=== PATIENT | male | born 1950 | race Caucasian/White ===

== ENCOUNTER 2017-09-09 21:04 | Emergency (ER) | payer BC, MEDICARE ==
--- NOTE | 2017-09-09 21:25 | ED ---
HPI Chest Pain - HPI Summary HPI Summary: 67 y/o male presents to the ED c/o L arm pain starting at the shoulder radiating down the arm starting at 19:30. Pt also c/o "bolts of CP" starting on the way to the ED. Pain resolved currently. Denies N/V, dizziness. Associated sx : SOB. Pt fell off a truck 2 days ago. Denies PMHx HTN, DM. Every day smoker. Pt states "he is under a lot of stress". This is scribe Ed Yesenia documenting for attending Neftali Gallo MD. - History of Current Complaint Chief Complaint: EDChestPainROMI Hx Obtained From: Patient Onset/Duration: Started Hours Ago, Still Present Timing: Intermittent - "bolts of pain" Pain Intensity: 6 Pain Scale Used: 0-10 Numeric Chest Pain Location: Mid Sternal Chest Pain Radiates To:: Arm - L shoulder down L arm Character: Other: - "bolts of pain" Aggravating Factor(s): Nothing Alleviating Factor(s): Nothing Associated Signs and Symptoms: Positive: Chest Pain, Shortness of Breath. Negative: Dizziness, Nausea, Vomiting - Allergy/Home Medications Allergies/Adverse Reactions: Allergies Allergy/AdvReac Type Severity Reaction Status Date / Time No Known Allergies Allergy Verified 02/04/16 12:42 PMH/Surg Hx/FS Hx/Imm Hx Previously Healthy: No Endocrine/Hematology History: Denies: Hx Diabetes Cardiovascular History: Denies: Hx Hypertension Musculoskeletal History: Reports: Hx Arthritis - Cancer History Cancer Type, Location and Year: skin CA - Surgical History Surgery Procedure, Year, and Place: hernia repair. finger surgery. skin CA removed from upper lip Infectious Disease History: No Infectious Disease History: Denies: Traveled Outside the [place] in Last 30 Days - Family History Known Family History: Positive: Unknown - Social History Alcohol Use: None Substance Use Type: Reports: None Hx Tobacco Use: Yes Smoking Status (MU): Current Every Day Smoker Review of Systems Constitutional: Negative Eyes: Negative ENT: Negative Positive: Chest Pain Positive: Shortness Of Breath Gastrointestinal: Negative Genitourinary: Negative Musculoskeletal: Other - L shoulder pain down the L arm Skin: Negative Neurological: Negative Psychological: Normal All Other Systems Reviewed And Are Negative: Yes Physical Exam - Summary Physical Exam Summary: Appearance: Well appearing, no pain distress Skin: warm, dry, reflects adequate perfusion Head/face: normal Eyes: EOMI, ROLAND ENT: normal Neck: supple, non-tender Respiratory: CTA, breath sounds present Cardiovascular: RRR, pulses symmetrical Abdomen: non-tender, soft Bowel: present Musculoskeletal: normal, strength/ROM intact Neuro: normal, sensory motor intact, A&Ox3 Triage Information Reviewed: Yes Vital Signs On Initial Exam: Initial Vitals Temp Pulse Resp BP Pulse Ox 98.1 F 66 16 149/97 97 09/09/17 21:06 09/09/17 21:06 09/09/17 21:06 09/09/17 21:06 09/09/17 21:06 Vital Signs Reviewed: Yes Diagnostics - Vital Signs Vital Signs Temp Pulse Resp BP Pulse Ox 09/09/17 21:06 98.1 F 66 16 149/97 97 - Laboratory Result Diagrams: 09/09/17 21:48 09/09/17 21:48 Lab Statement: Any lab studies that have been ordered have been reviewed, and results considered in the medical decision making process. - Radiology CXR Xray Interpretation: No Acute Changes Radiology Interpretation Completed By: ED Physician - EKG 1 EKG Interpretation: 21:11 - SR @ 61 BPM. No acute changes. Chest Pain Course/Dx - Course Assessment/Plan: EKG normal. CXR normal. Doesnt want to stayfor second troponin. agrees to f/u with pcp and receive stress test as outpatient. unlikely acs at present. pt and agrees with the plan - Chest Pain Differential Diagnosis/HQI/PQRI: Acute GA, Angina, Chest Wall, Lower Respiratory Infection - Diagnoses Provider Diagnoses: Chest pain Discharge - Sign-Out/Discharge Documenting (check all that apply): Patient Departure - Discharge Plan Condition: Stable Disposition: HOME Patient Education Materials: Chest Pain (ED) Referrals: Kennedy Frey MD [Primary Care Provider] - 4 Days (PLEASE F/u IN 3-5 DAYS) Additional Instructions: RETURN TO ED FOR CHANGING/WORSENING SYMPTOMS - Billing Disposition and Condition Condition: STABLE Disposition: Home
[2017-09-09] MEDS ORDERED: Aspirin TAB* 325 MG PO ONE (21:33)
--- OUTSIDE RECORDS SUMMARY | 2017-09-09 21:50 | XMS REPORT ---
:1950 External Reference #:[id number] Author Organization [employer] Address [address] [place] [address] Phone [phone] Care Team Providers Name Role Phone Kennedy Frey MD Primary Care Physician Unavailable Payers Type Date Identification Numbers Payment Provider Subscriber Commercial Effective: Policy Number: BS Facets Crescencio Delaney 2015 [id number] PayID: [id number] [address] [address] [place] [address] Health Maintenance Policy Number: [facility] Medicare Carlos Mejias (HMO) [id number] Solutions Group Number: [id number] [address] [address] PayID: [id number] [place] [address] Medigap Part B Expires: 02/11/2015 Policy Number: [id number] Medicaid Carlos Cruz Group Name: 1 1 [address] PayID: [id number] [place] [address] Workers Compensation Effective: Policy Number: Javed Holly 02/03/2016 [id number] Nancy Onset: 02/03/2016 Group Name: [phone] PayID: [id number] [place] [address] Problems Date Description Provider Status Onset: 05/07/2014 Difficulty sleeping Kevin Richardson M.D. Active Onset: 05/07/2014 Backache Kevin Richardson M.D. Active Onset: 11/17/2015 Normocytic anemia Sylvia Vazquez M.D.,FACP Onset: 01/09/2016 Impaired fasting glycaemia Sylvia Vazquez M.D.,FACLaura Onset: 01/09/2016 Major depressive disorder Kennedy Frey, Active Kaila,FACP Onset: 06/01/2016 Light cigarette smoker (1-9 Kennedy Frey, Active cigs/day) Kaila,FACP Onset: 05/07/2014 Hip pain Kevin Richardson M.D. Inactive Inactive: 11/17/2015 Family History Date Family Member(s) Problem(s) Comments General No Current Problems : (age 90 Father due to Old age? Years) Father Coronary Artery Disease (CAD) : (age 90 Mother due to Old age? Years) Mother Hypertension Mother Congestive Heart Failure (CHF) Siblings 3 First Brother Brain Cancer Second Brother Unknown incommunicado First Sister Multiple Sclerosis (MS) Social History Type Date Description Comments Marital Status Significant Other Lives With Girlfriend Occupation Self-employment Cigarette Use 03/14/2016 current cigarette smoker Began smoking in high school, less than 1/2 ppd ETOH Use 03/14/2016 Consumes 2 glasses of wine per day Recreational Drug Use Denies Drug Use Smoking Light tobacco smoker (10 or fewer cigarettes/day) Daily Caffeine Consumes on average 1 cup of regular coffee per day Exercise Type/Frequency Walks daily General Hx Text Allergies, Adverse Reactions, Alerts Date Description Reaction Status Severity Comments 03/14/2016 Cortisone active 06/01/2016 Cymbalta nausea, low energy, active Moderate to Severe confusion 05/07/2014 NKDA inactive Medications Medication Date Status Form Strength Qnty SIG Indications Ordering Provider Rozerem 04/25/ Active Tablets 8mg 30tabs 1 by mouth Kennedy 2018 every night Erma Frey, at bedtime M.DJustice,FACP as needed for insomnia Alprazolam 00/ Active Tablets 0.5mg 45tabs /2-1 by Kennedy 0000 mouth twice Erma Frey, a day as M.D.,FACP needed Ibuprofen 00/00/ Active Tablets 200mg as needed 3 Unknown 0000 per day Acetaminophen- 00/ Active Tablets 300-30mg 100tab take one Merlene Molina Codeine #3 0000 s tablet by Erma Frey, mouth twice M.D.,FACP a day as needed maximum daily dose=4 (replace rx earlier today) Tamsulosin HCL 11/06/ Hx Capsules 0.4mg 30caps 1 by mouth Kennedy 2017 - every day Erma Frey, 04/25/ M.D.,FACP 2018 Azithromycin 05/28/ Hx Tablets 250mg 6tabs 2 tab today J20.Donis Dennis 2017 - and then Pachikara 06/01/ 1tab daily , M.D. 2017 Ventolin HFA 05/28/ Hx Aerosol 108(90Base 8gm 2 puffs by Joan Dennis 2016 - ) mcg/Act mouth 3 Pachikara 11/06/ times a day , M.D. 2016 with spacer Duloxetine HCL 03/26/ Hx Caps 30mg 14caps take 1 Kennedy 2016 - Part capsule Erma Frey, 06/01/ every M.D.,FACP 2017 morning Duloxetine HCL 03/14/ Hx Caps DR 60mg 30caps take 1 Kennedy 2016 - Part capsule by Erma Frey, 03/26/ mouth every M.D.,FACP 2017 morning Doxycycline 01/08/ Hx Capsules 100mg 42caps si bid A69.20 Kennedy Monohydrate 2016 - x 21 days Erma Frey, 01/29/ M.D.,FACP 2016 Vitamin B-12 01/08/ Hx Tablets ER 1000mcg 1 po qd Kennedy ER 2016 - Erma Frey, 11/06/ M.D.,FACP 2017 Cymbalta 01/08/ Hx Caps DR 30mg 60caps 1 by mouth Kennedy 2016 - Part every Erma Frey, 03/14/ morning for M.D.,FACP 2017 2 wks then 2 qd Zolpidem 10/19/ Hx Tablets 10mg 30tabs 1/2-1 tab Kennedy Tartrate 2016 - by mouth Erma Frey, 10/22/ every night M.D.,FACP 2016 at bedtime as needed Amoxicillin/Cl 06/05/ Hx Tablets 875-125mg 20tabs 1 by mouth Demian0.Donis Dennis avulanate 2016 - twice a day Pachikara Potassium 10/19/ , M.D. 2015 Zolpidem 11/23/ Hx Tablets ER 12.5mg 30tabs 1 by mouth Kennedy Tartrate ER 2015 - every night Erma Frey, 10/19/ at bedtime M.D.,FACP 2016 Cephalexin 09/13/ Hx Capsules 500mg 28caps 4 times a 681.00 Kennedy 2014 - day by Erma Frey, 04/12/ mouth Kaila,FACP 2016 Zolpidem / Hx Tablets 10mg 30tabs 1 tab by [place] Tartrate 0000 - mouth every Pachikara 11/23/ night at , Kaila 2015 bedtime as needed note medication is for 30 days Ambien / Hx Tablets 5mg 30tabs one by Kennedy 0000 - mouth at Erma Frey, 04/25/ bedtime as Kaila,FACP 2017 needed for sleep Immunizations CPT Code Status Date Vaccine Lot # [id number] Given 04/25/2017 Pneumonia Vaccine [id number] 88565 Given 01/28/2017 Influenza Virus Vaccine, Quadrivalent, Split, [id number] Preservative Free [id number] Given 03/14/2016 Zoster (Zostavax) [id number] 04898 Given 11/17/2015 Pneumococcal Conjugate Vaccine 13 Valent For [id number] Intramuscular Use Vital Signs Date Vital Result Comment 09/03/2017 Height 67 inches 5'7" Weight 137.00 lb Heart Rate 64 /min BP Systolic Sitting 120 mmHg BP Diastolic Sitting 82 mmHg Body Temperature 97.8 F O2 % BldC Oximetry 97 % BMI (Body Mass Index) 21.5 kg/m2 04/25/2017 Height 67 inches 5'7" Weight 142.00 lb Heart Rate 70 /min BP Systolic Sitting 130 mmHg BP Diastolic Sitting 64 mmHg Body Temperature 97.7 F O2 % BldC Oximetry 97 % BMI (Body Mass Index) 22.2 kg/m2 01/28/2017 Weight 142.00 lb Heart Rate 62 /min BP Systolic 138 mmHg BP Diastolic 80 mmHg Body Temperature 97.6 F O2 % BldC Oximetry 91 % 11/06/2016 Weight 141.75 lb Heart Rate 67 /min BP Systolic Sitting 130 mmHg BP Diastolic Sitting 80 mmHg Body Temperature 98.2 F O2 % BldC Oximetry 98 % 06/01/2016 Weight 140.50 lb Heart Rate 62 /min BP Systolic Sitting 120 mmHg BP Diastolic Sitting 84 mmHg Body Temperature 97.7 F O2 % BldC Oximetry 97 % 05/28/2016 Weight 145.12 lb Heart Rate 60 /min BP Systolic Sitting 126 mmHg BP Diastolic Sitting 78 mmHg Body Temperature 97.7 F O2 % BldC Oximetry 98 % 03/14/2016 Height 66.5 inches 5'6.50" Weight 143.38 lb Heart Rate 66 /min BP Systolic Sitting 128 mmHg BP Diastolic Sitting 74 mmHg Body Temperature 98.2 F O2 % BldC Oximetry 98 % BMI (Body Mass Index) 22.8 kg/m2 02/14/2016 Height 66.5 inches 5'6.50" Weight 153.00 lb Heart Rate 65 /min BP Systolic 134 mmHg BP Diastolic 80 mmHg Body Temperature 98.8 F O2 % BldC Oximetry 98 % BMI (Body Mass Index) 24.3 kg/m2 01/09/2016 Weight 150.12 lb Heart Rate 69 /min BP Systolic Sitting 130 mmHg BP Diastolic Sitting 80 mmHg Body Temperature 98.3 F O2 % BldC Oximetry 97 % 11/17/2015 Weight 150.00 lb Heart Rate 64 /min BP Systolic Sitting 128 mmHg BP Diastolic Sitting 64 mmHg O2 % BldC Oximetry 97 % 06/27/2015 Height 66.5 inches 5'6.50" Weight 150.00 lb Pain Level 1 to 10 BMI (Body Mass Index) 23.8 kg/m2 06/15/2015 Height 66.5 inches 5'6.50" Weight 150.00 lb Heart Rate 65 /min BP Systolic 142 mmHg BP Diastolic 94 mmHg BMI (Body Mass Index) 23.8 kg/m2 06/06/2015 Height 66.5 inches 5'6.50" Weight 152.00 lb Heart Rate 68 /min BP Systolic Sitting 116 mmHg BP Diastolic Sitting 78 mmHg Body Temperature 97.8 F O2 % BldC Oximetry 98 % BMI (Body Mass Index) 24.2 kg/m2 04/13/2015 Height 66.5 inches 5'6.50" Weight 150.38 lb Heart Rate 70 /min BP Systolic Sitting 118 mmHg BP Diastolic Sitting 76 mmHg Body Temperature 97.0 F O2 % BldC Oximetry 98 % BMI (Body Mass Index) 23.9 kg/m2 09/13/2014 Height 66.5 inches 5'6.50" Weight 146.38 lb Heart Rate 67 /min BP Systolic Sitting 116 mmHg BP Diastolic Sitting 70 mmHg Body Temperature 97.3 F O2 % BldC Oximetry 97 % BMI (Body Mass Index) 23.3 kg/m2 08/10/2014 Weight 149.50 lb Heart Rate 65 /min BP Systolic Sitting 138 mmHg BP Diastolic Sitting 88 mmHg Body Temperature 96.6 F O2 % BldC Oximetry 97 % 06/30/2014 Height 66.5 inches 5'6.50" Weight 149.12 lb Heart Rate 90 /min BP Systolic Sitting 136 mmHg BP Diastolic Sitting 88 mmHg Body Temperature 98.4 F O2 % BldC Oximetry 97 % BMI (Body Mass Index) 23.7 kg/m2 05/07/2014 Height 66.5 inches 5'6.50" Weight 151.12 lb Heart Rate 73 /min BP Systolic Sitting 124 mmHg BP Diastolic Sitting 82 mmHg Body Temperature 98.0 F O2 % BldC Oximetry 98 % BMI (Body Mass Index) 24.0 kg/m2 Results Test Date Test Result H/L Range Note CBC Auto Diff 05/03/2017 White Blood Count 5.3 10^3/uL 3.5-10.8 Red Blood Count 4.46 10^6/uL 4.0-5.4 Hemoglobin 13.8 g/dL Low 14.0-18.0 Hematocrit 41 % Low 42-52 Mean Corpuscular Volume 92 fL 80-94 Mean Corpuscular Hemoglobin 31 pg 27-31 Mean Corpuscular HGB Conc 34 g/dL 31-36 Red Cell Distribution Width 14 % 10.5-15 Platelet Count 252 10^3/uL 150-450 Mean Platelet Volume 7.0 um3 Low 7.4-10.4 Abs Neutrophils 2.7 10^3/uL 1.5-7.7 Abs Lymphocytes 1.9 10^3/uL 1.0-4.8 Abs Monocytes 0.5 10^3/uL 0-0.8 Abs Eosinophils 0.1 10^3/uL 0-0.6 Abs Basophils 0 10^3/uL 0-0.2 Abs Nucleated RBC 0 10^3/uL Granulocyte % 51.3 % 38-83 Lymphocyte % 36.6 % 25-47 Monocyte % 9.3 % High 0-7 Eosinophil % 2.2 % 0-6 Basophil % 0.6 % 0-2 Nucleated Red Blood Cells % 0.1 Basic Metabolic Panel 05/03/2017 Sodium 140 mmol/L 133-145 Potassium 4.1 mmol/L 3.5-5.0 Chloride 102 mmol/L 101-111 Co2 Carbon Dioxide 31 mmol/L 22-32 Anion Gap 7 mmol/L 2-11 Glucose 94 mg/dL 70-100 Blood Urea Nitrogen 19 mg/dL 6-24 Creatinine 0.93 mg/dL 0.67-1.17 BUN/Creatinine Ratio 20.4 High 8-20 Calcium 9.6 mg/dL 8.6-10.3 Egfr Non- 80.8 >60 Egfr 103.9 >60 1 Drug Abuse 20 Urine 11/06/2016 Urine Amphetamine Negative ng/mL 2, 3 Urine Barbiturates Negative ng/mL 2, 4 Urine Benzodiazepines Presumptive Posi <SEE NOTE> ng/mL 2, 5 Urine Cocaine Negative ng/mL 2, 6 Urine Phencyclidine Negative ng/mL Cutoff: 25 2 Urine Tetrahydrocannabinol Negative ng/mL Cutoff: 50 2, 7 Creatinine, Urine 126.8 mg/dL 2 Specific Ennis 1.020 2 pH 5.6 2 Oxidants Negative 2, 8 Adulterants Comment Normal 2 Codeine, Ur Present ng/mL Cutoff: 25 2, 9 Scwuxix-9-ephv-glucuronide, Ur Present ng/mL 2, 10 Morphine, Ur Not Detected ng/mL Cutoff: 25 2, 11 Mkqeyqve-9-awsf-glucuronide, U Present ng/mL 2, 12 6-monoacetylmorphine, Ur Not Detected ng/mL Cutoff: 25 2, 13 Hydrocodone, Ur Present ng/mL Cutoff: 25 2, 14 Norhydrocodone, Ur Present ng/mL Cutoff: 25 2, 15 Dihydrocodeine, Ur Not Detected ng/mL Cutoff: 25 2, 16 Hydromorphone, Ur Not Detected ng/mL Cutoff: 25 2, 17 Tyeigibzcjuvq9ymsriozxdaxzpoq Not Detected ng/mL 2, 18 Oxycodone, Ur Not Detected ng/mL Cutoff: 25 2, 19 Noroxycodone, Ur Not Detected ng/mL Cutoff: 25 2, 20 Oxymorphone, Ur Not Detected ng/mL Cutoff: 25 2, 21 Pjogrcdaeut-4-vmfi-glucuronide Not Detected ng/mL 2, 22 Noroxymorphone, Ur Not Detected ng/mL Cutoff: 25 2, 23 Fentanyl, Ur Not Detected ng/mL Cutoff: 2 2, 24 Norfentanyl, Ur Not Detected ng/mL Cutoff: 2 2, 25 Meperidine, Ur Not Detected ng/mL Cutoff: 25 2, 26 Normeperidine, Ur Not Detected ng/mL Cutoff: 25 2, 27 Naloxone, Ur Not Detected ng/mL Cutoff: 25 2, 28 Fztkkiyl-4-nnbd-glucuronide, U Not Detected ng/mL 2, 29 Methadone, Ur Not Detected ng/mL Cutoff: 25 2, 30 Eddp, Ur Not Detected ng/mL Cutoff: 25 2, 31 Propoxyphene, Ur Not Detected ng/mL Cutoff: 25 2, 32 Norpropoxyphene, Ur Not Detected ng/mL Cutoff: 25 2, 33 Tramadol, Ur Not Detected ng/mL Cutoff: 25 2, 34 O-desmethyltramadol, Ur Not Detected ng/mL Cutoff: 25 2, 35 Tapentadol, Ur Not Detected ng/mL Cutoff: 25 2, 36 N-desmethyltapentadol, Ur Not Detected ng/mL Cutoff: 50 2, 37 Mlawirldxn-fwiq-zywpaphjotf, U Not Detected ng/mL 2, 38 Buprenorphine, Ur Not Detected ng/mL Cutoff: 5 2, 39 Norbuprenorphine, Ur Not Detected ng/mL Cutoff: 5 2, 40 Norbuprenorphine glucuronide Not Detected ng/mL Cutoff: 20 2, 41 Opioid Interpretation See Comment 2, 42 Benzodiazepine Confirm 11/06/2016 Urine Lorazepam GC/MS Negative ng/mL 2, 43 Urine Urine Nordiazepam GC/MS Negative ng/mL 2, 44 Urine Oxazepam GC/MS Negative ng/mL 2, 45 Urine Temazepam GC/MS Negative ng/mL 2, 46 Ur Oh Ethyl Flurazepam GC/MS Negative ng/mL 2, 47 Ur 7 [place] Clonazepam GC/MS Negative ng/mL 2, 48 Ur 7 NH Flunitrazepam GC/MS Negative ng/mL Cutoff: 50 2 Ur Alpha Oh Alprazolam GC/MS 149 ng/mL 2, 49 Ur Alpha Oh Triazolam GC/MS Negative ng/mL 2, 50 Ur Benzodiazepine Interp Positive. 2, 51 Ua Routine 11/06/2016 Ua Specific Ennis 1.020 Ua PH 5 Ua Color dark yellow Ua Appera clear Ua WBC neg Ua Protein neg Ua Glucose normal Ua Ketones neg Ua Bilirubin neg Ua Urobilinogen normal Ua Nitrite neg Ua Occult Blood neg CBC Auto Diff 09/28/2016 White Blood Count 4.9 10^3/uL 3.5-10.8 Red Blood Count 4.35 10^6/uL 4.0-5.4 Hemoglobin 13.9 g/dL Low 14.0-18.0 Hematocrit 40 % Low 42-52 Mean Corpuscular Volume 93 fL 80-94 Mean Corpuscular Hemoglobin 32 pg High 27-31 Mean Corpuscular HGB Conc 35 g/dL 31-36 Red Cell Distribution Width 14 % 10.5-15 Platelet Count 248 10^3/uL 150-450 Mean Platelet Volume 7 um3 Low 7.4-10.4 Abs Neutrophils 2.4 10^3/uL 1.5-7.7 Abs Lymphocytes 1.9 10^3/uL 1.0-4.8 Abs Monocytes 0.4 10^3/uL 0-0.8 Abs Eosinophils 0.2 10^3/uL 0-0.6 Abs Basophils 0 10^3/uL 0-0.2 Abs Nucleated RBC 0 10^3/uL Granulocyte % 48.9 % 38-83 Lymphocyte % 39.3 % 25-47 Monocyte % 7.4 % 1-9 Eosinophil % 3.7 % 0-6 Basophil % 0.7 % 0-2 Nucleated Red Blood Cells % 0 Comp Metabolic Panel 09/28/2016 Sodium 136 mmol/L 133-145 Potassium 4.4 mmol/L 3.5-5.0 Chloride 103 mmol/L 101-111 Co2 Carbon Dioxide 27 mmol/L 22-32 Anion Gap 6 mmol/L 2-11 Glucose 102 mg/dL High 70-100 Blood Urea Nitrogen 18 mg/dL 6-24 Creatinine 0.78 mg/dL 0.67-1.17 BUN/Creatinine Ratio 23.1 High 8-20 Calcium 9.5 mg/dL 8.6-10.3 Total Protein 6.8 g/dL 6.4-8.9 Albumin 4.2 g/dL 3.2-5.2 Globulin 2.6 g/dL 2-4 Albumin/Globulin Ratio 1.6 1-3 Total Bilirubin 0.50 mg/dL 0.2-1.0 Alkaline Phosphatase 41 U/L 34-104 Alt 20 U/L 7-52 Ast 21 U/L 13-39 Egfr Non- 99.3 >60 Egfr 127.7 >60 52 Laboratory test finding 09/28/2016 Lipase 34 U/L 11.0-82.0 TSH (Thyroid Stim Horm) 1.78 mcIU/mL 0.34-5.60 Ashok Garcia Comprehensive 09/28/2016 Ebv Capsid Ag IgG Ab Positive Negative Ebv Capsid Ag IgM Ab Negative Negative Ashok-Garcia Nuclear Antigen Positive Negative Ashok-Garcia Virus Interp See Comment 53 Laboratory test finding 09/28/2016 Lyme Disease Serology Negative Negative 54 Lipid Profile 05/29/2016 Triglycerides 57 mg/dL 55 (Trig/Chol/HDL) Cholesterol 160 mg/dL 56 HDL Cholesterol 42.1 mg/dL 57 LDL Cholesterol 107 mg/dL 58 Laboratory test finding 05/29/2016 Glucose 95 mg/dL 70-100 Vitamin B12 1068 pg/mL High 180-914 59 Hepatitis C Antibody Nonreactive Nonreactive Laboratory Studies 02/04/2016 Urine Specific Ennis 1.033 High 1.010- 1.030 Urine pH 5.0 5-9 Laboratory Studies 02/04/2016 Absolute Basophils (auto) 0 10^3/ul 0-0.2 Absolute Eosinophils (auto) 0.1 10^3/ul 0-0.6 Absolute Lymphocytes (auto) 2.1 10^3/ul 1.0-4.8 Absolute Monocytes (auto) 0.4 10^3/ul 0-0.8 Absolute Neutrophils (auto) 3.1 10^3/ul 1.5-7.7 Alanine Aminotransferase (Alt/SGPT) 21 U/L 7-52 Albumin 4.0 g/dL 3.2-5.2 Albumin/Globulin Ratio 1.4 1-3 Alkaline Phosphatase 36 U/L 34-104 Anion Gap 4 mmol/L 2-11 Aspartate Amino Transf (Ast/Sgot) 20 U/L 13-39 BUN/Creatinine Ratio 21.3 High 8-20 Basophils (%) (Auto) 0.7 % 0-2 Blood Urea Nitrogen 16 mg/dL 6-24 Calcium Level 9.4 mg/dL 8.6-10.3 Carbon Dioxide Level 30 mmol/L 22-32 Chloride Level 102 mmol/L 101-111 Creatinine 0.75 mg/dL 0.67-1.17 Eosinophils (%) (Auto) 2.3 % 0-6 Estimated GFR () 134.0 Estimated GFR (Non- 104.2 Globulin 2.8 g/dL 2-4 Glucose Level 94 mg/dL 70-100 Hematocrit 40 % Low 42-52 Hemoglobin 13.3 g/dL Low 14.0-18.0 Lymphocytes (%) (Auto) 36.3 % 25-47 Mean Corpuscular Hemoglobin 31 pg 27-31 Mean Corpuscular Hemoglobin Concent 33 g/dL 31-36 Mean Corpuscular Volume 92 fL 80-94 Mean Platelet Volume 7 um3 Low 7.4-10.4 Monocytes (%) (Auto) 6.6 % 1-9 Neutrophils (%) (Auto) 54.1 % 38-83 Nucleated RBC Absolute Count (auto) 0 10^3/ul Nucleated Red Blood Cells % 0 Platelet Count 232 10^3/ul 150-450 Potassium Level 4.5 mmol/L 3.5-5.0 Red Blood Count 4.30 10^6/ul 4.0-5.4 Red Cell Distribution Width 14 % 10.5-15 Sodium Level 136 mmol/L 133-145 Total Bilirubin 0.70 mg/dL 0.2-1.0 Total Protein 6.8 g/dL 6.4-8.9 White Blood Count 5.7 10^3/ul 3.5-10.8 Protein Electrophoresis 11/21/2015 Total Protein(Pep) 7.5 g/dL 6.3 - 7.9 Albumin 3.7 g/dL 3.4-4.7 Alpha-1 Globulin 0.2 g/dL 0.1-0.3 Alpha-2 Globulin 1.1 g/dL 0.6-1.0 Beta Globulin 1.0 g/dL 0.7-1.2 Gamma Globulin 1.6 g/dL 0.6-1.6 Albumin/Globulin Ratio 0.98 Impression See Comment 60 Iron & Iron Binding Capacity 11/21/2015 Iron 81 g/dL 50-212 Unsaturated Iron Binding 261 g/dL Total Iron Binding Capacity 342 g/dL 250-450 % Iron Saturation 24 % 15-55 Laboratory test finding 11/21/2015 Vitamin B12 288 pg/mL 180-914 61 CBC Auto Diff 11/21/2015 White Blood Count 5.4 10^3/uL 3.5-10.8 Red Blood Count 4.46 10^6/uL 4.0-5.4 Hemoglobin 13.7 g/dL Low 14.0-18.0 Hematocrit 40 % Low 42-52 Mean Corpuscular Volume 91 fL 80-94 Mean Corpuscular Hemoglobin 31 pg 27-31 Mean Corpuscular HGB Conc 34 g/dL 31-36 Red Cell Distribution Width 13 % 10.5-15 Platelet Count 266 10^3/uL 150-450 Mean Platelet Volume 7 um3 Low 7.4-10.4 Abs Neutrophils 3.5 10^3/uL 1.5-7.7 Abs Lymphocytes 1.2 10^3/uL 1.0-4.8 Abs Monocytes 0.4 10^3/uL 0-0.8 Abs Eosinophils 0.2 10^3/uL 0-0.6 Abs Basophils 0 10^3/uL 0-0.2 Abs Nucleated RBC 0 10^3/uL Granulocyte % 65.6 % 38-83 Lymphocyte % 23.0 % Low 25-47 Monocyte % 7.2 % 1-9 Eosinophil % 3.7 % 0-6 Basophil % 0.5 % 0-2 Nucleated Red Blood Cells % 0 Comp Metabolic Panel 11/21/2015 Sodium 138 mmol/L 133-145 Potassium 4.4 mmol/L 3.5-5.0 Chloride 103 mmol/L 101-111 Co2 Carbon Dioxide 29 mmol/L 22-32 Anion Gap 6 mmol/L 2-11 Glucose 101 mg/dL High 70-100 Blood Urea Nitrogen 16 mg/dL 6-24 Creatinine 0.76 mg/dL 0.67-1.17 BUN/Creatinine Ratio 21.1 High 8-20 Calcium 9.7 mg/dL 8.6-10.3 Total Protein 7.0 g/dL 6.4-8.9 Albumin 4.3 g/dL 3.2-5.2 Globulin 2.7 g/dL 2-4 Albumin/Globulin Ratio 1.6 1-3 Total Bilirubin 0.40 mg/dL 0.2-1.0 Alkaline Phosphatase 52 U/L 34-104 Alt 16 U/L 7-52 Ast 20 U/L 13-39 Egfr Non- 102.6 >60 Egfr 132.0 >60 62 Laboratory test finding 11/21/2015 Lyme Disease Serology Negative Negative 63 CBC Auto Diff 06/06/2015 White Blood Count 5.3 10^3/uL 3.5-10.8 Red Blood Count 4.30 10^6/uL 4.0-5.4 Hemoglobin 13.3 g/dL Low 14.0-18.0 Hematocrit 39 % Low 42-52 Mean Corpuscular Volume 92 fL 80-94 Mean Corpuscular Hemoglobin 31 pg 27-31 Mean Corpuscular HGB Conc 34 g/dL 31-36 Red Cell Distribution Width 13 % 10.5-15 Platelet Count 260 10^3/uL 150-450 Mean Platelet Volume 7 um3 Low 7.4-10.4 Abs Neutrophils 2.5 10^3/uL 1.5-7.7 Abs Lymphocytes 1.9 10^3/uL 1.0-4.8 Abs Monocytes 0.5 10^3/uL 0-0.8 Abs Eosinophils 0.4 10^3/uL 0-0.6 Abs Basophils 0 10^3/uL 0-0.2 Abs Nucleated RBC 0 10^3/uL Granulocyte % 48.3 % 38-83 Lymphocyte % 35.1 % 25-47 Monocyte % 8.9 % 1-9 Eosinophil % 7.0 % High 0-6 Basophil % 0.7 % 0-2 Nucleated Red Blood Cells % 0 Comp Metabolic Panel 06/06/2015 Sodium 138 mmol/L 133-145 Potassium 4.1 mmol/L 3.5-5.0 Chloride 105 mmol/L 101-111 Co2 Carbon Dioxide 28 mmol/L 22-32 Anion Gap 5 mmol/L 2-11 Glucose 79 mg/dL 70-100 Blood Urea Nitrogen 15 mg/dL 6-24 Creatinine 0.73 mg/dL 0.67-1.17 BUN/Creatinine Ratio 20.5 High 8-20 Calcium 9.2 mg/dL 8.6-10.3 Total Protein 6.7 g/dL 6.4-8.9 Albumin 4.2 g/dL 3.2-5.2 Globulin 2.5 g/dL 2-4 Albumin/Globulin Ratio 1.7 1-3 Total Bilirubin 0.40 mg/dL 0.2-1.0 Alkaline Phosphatase 46 U/L 34-104 Alt 17 U/L 7-52 Ast 20 U/L 13-39 Egfr Non- 107.5 >60 Egfr 138.2 >60 64 Laboratory test finding 06/06/2015 TSH (Thyroid Stim Horm) 2.21 ?IU/mL 0.34-5.60 Laboratory test finding 09/28/2014 TSH (Thyroid Stim Horm) 1.77 ?IU/mL 0.34-5.60 CBC Auto Diff 09/28/2014 White Blood Count 5.0 10^3/uL 4.8-10.8 Red Blood Count 4.65 10^6/uL 4.0-5.4 Hemoglobin 13.9 g/dL Low 14.0-18.0 Hematocrit 43 % 42-52 Mean Corpuscular Volume 92 fL 80-94 Mean Corpuscular Hemoglobin 30 pg 27-31 Mean Corpuscular HGB Conc 32 g/dL 31-36 Red Cell Distribution Width 14 % 10.5-15 Platelet Count 284 10^3/uL 150-450 Mean Platelet Volume 7 um3 Low 7.4-10.4 Abs Neutrophils 2.6 10^3/uL 1.5-7.7 Abs Lymphocytes 1.8 10^3/uL 1.0-4.8 Abs Monocytes 0.4 10^3/uL 0-0.8 Abs Eosinophils 0.1 10^3/uL 0-0.6 Abs Basophils 0 10^3/uL 0-0.2 Abs Nucleated RBC 0 10^3/uL Granulocyte % 52.5 % 38-83 Lymphocyte % 35.8 % 25-47 Monocyte % 8.7 % 1-9 Eosinophil % 2.4 % 0-6 Basophil % 0.6 % 0-2 Nucleated Red Blood Cells % 0.1 Comp Metabolic Panel 09/28/2014 Sodium 138 mmol/L 133-145 Potassium 4.6 mmol/L 3.5-5.0 Chloride 103 mmol/L 101-111 Co2 Carbon Dioxide 29 mmol/L 22-32 Anion Gap 6 mmol/L 2-11 Glucose 86 mg/dL 70-100 Blood Urea Nitrogen 19 mg/dL 6-24 Creatinine 0.76 mg/dL 0.67-1.17 BUN/Creatinine Ratio 25.0 High 8-20 Calcium 9.5 mg/dL 8.6-10.3 Total Protein 6.9 g/dL 6.4-8.9 Albumin 4.2 g/dL 3.2-5.2 Globulin 2.7 g/dL 2-4 Albumin/Globulin Ratio 1.6 1-3 Total Bilirubin 0.50 mg/dL 0.2-1.0 Alkaline Phosphatase 47 U/L 34-104 Alt 14 U/L 7-52 Ast 17 U/L 13-39 Egfr Non- 102.9 >60 Egfr 132.4 >60 65 1 Because ethnic data is not always readily available, this report includes an eGFR for both -Americans and non- Americans. The National Kidney Disease Education Program (NKDEP) does not endorse the use of the MDRD equation for patients that are not between the ages of 18 and 70, are , have extremes of body size, muscle mass, or nutritional status, or are non- or non-. According to the National Kidney Foundation, irrespective of diagnosis, the stage of the disease is based on the level of kidney function: Stage Description GFR(mL/min/1.73 m(2)) 1 Kidney damage with normal or decreased GFR 90 2 Kidney damage with mild decrease in GFR 60-89 3 Moderate decrease in GFR 30-59 4 Severe decrease in GFR 15-29 5 Kidney failure <15 (or dialysis) 2 [id number] 3 REFERENCE VALUE Cutoff: 500 4 REFERENCE VALUE Cutoff: 200 5 Presumptive Positive Drug confirmation to follow. Presumptive Positive means that the screening method is positive, but the test needs to be run by a confirmatory method before being finalized. REFERENCE VALUE Cutoff: 100 6 REFERENCE VALUE Cutoff: 150 7 ADDITIONAL INFORMATION This report is intended for use in clinical monitoring or management of patients. It is not intended for use in employment-related testing. 8 REFERENCE VALUE Cutoff: 200 mg/L 9 Tylenol 3 10 Metabolite of codeine REFERENCE VALUE Cutoff: 100 11 Linette Gutiérrez, MS Contin; Also a minor metabolite (10%) of codeine and can be seen in low concentrations (<2,000 ng/mL) with poppy seed ingestion. 12 Metabolite of morphine REFERENCE VALUE Cutoff: 100 13 Metabolite of heroin 14 Lortab, [place], Vicodin; Also a very minor metabolite of codeine and impurity (<1%) of oxycodone. 15 Metabolite of hydrocodone 16 Metabolite of hydrocodone 17 Dilaudid, Exalgo; Also a metabolite of hydrocodone and a minor (<5%) metabolite of morphine. 18 Metabolite of hydromorphone REFERENCE VALUE Cutoff: 100 19 Endocet, Percocet, Oxycontin 20 Metabolite of oxycodone 21 Numorphan, Opana; Also a metabolite of oxycodone. 22 Metabolite of oxymorphone REFERENCE VALUE Cutoff: 100 23 Metabolite of oxymorphone 24 Actiq, Duragesic, [place] 25 Metabolite of fentanyl 26 Demerol 27 Metabolite of meperidine 28 Narcan 29 Metabolite of naloxone REFERENCE VALUE Cutoff: 100 30 Dolophine 31 Metabolite of methadone 32 Darvon, Darvocet 33 Metabolite of propoxyphene 34 Tradol, Ultram, Ultracet 35 Metabolite of tramadol 36 Nucynta 37 Metabolite of tapentadol 38 Metabolite of tapentadol REFERENCE VALUE Cutoff: 100 39 Buprenex, Suboxone 40 Metabolite of buprenorphine 41 Metabolite of buprenorphine 42 Test detected the presence of codeine, [id number] (metabolite of codeine) and [id number]-glucuronide (metabolite of morphine). Since codeine gets metabolized to morphine, suspect use of codeine within the past three days. Test detected the presence of hydrocodone and one of its metabolites (norhydrocodone). Suspect use of hydrocodone within the past three days. ADDITIONAL INFORMATION This test was developed and its performance characteristics determined by [facility] in a manner consistent with CLIA requirements. This test has not been cleared or approved by the U.S. Food and Drug Administration. Test Performed by: [facility] [address] [place] [address] 43 REFERENCE VALUE Cutoff: 100 44 REFERENCE VALUE Cutoff: 100 45 REFERENCE VALUE Cutoff: 100 46 REFERENCE VALUE Cutoff: 100 47 REFERENCE VALUE Cutoff: 100 48 REFERENCE VALUE Cutoff: 100 49 REFERENCE VALUE Cutoff: 100 50 REFERENCE VALUE Cutoff: 100 51 ADDITIONAL INFORMATION This report is intended for use in clinical monitoring and management of patients. It is not intended for use in employment-related testing. This test was developed and its performance characteristics determined by [facility] in a manner consistent with CLIA requirements. This test has not been cleared or approved by the U.S. Food and Drug Administration. Test Performed by: [facility] [address] [place] [address] 52 Because ethnic data is not always readily available, this report includes an eGFR for both -Americans and non- Americans. The National Kidney Disease Education Program (NKDEP) does not endorse the use of the MDRD equation for patients that are not between the ages of 18 and 70, are , have extremes of body size, muscle mass, or nutritional status, or are non- or non-. According to the National Kidney Foundation, irrespective of diagnosis, the stage of the disease is based on the level of kidney function: Stage Description GFR(mL/min/1.73 m(2)) 1 Kidney damage with normal or decreased GFR 90 2 Kidney damage with mild decrease in GFR 60-89 3 Moderate decrease in GFR 30-59 4 Severe decrease in GFR 15-29 5 Kidney failure <15 (or dialysis) 53 RESULT: Results suggest past infection. ADDITIONAL INFORMATION In most populations, at least 90% of the adult population will have been infected with EBV sometime in the past and therefore, will be positive for anti-VCA/IgG and anti- EBNA. Antibodies to EBNA develop 6-8 weeks after primary infection and remain present for life. Presence of VCA/ IgM antibodies indicates recent primary infection with EBV. Test Performed by: [place] [id number] Serologic response to B. burgdorferi infection is not detected, but cannot rule out early infection during which low or undetectable antibody levels to B. burgdorferi may be present. If clinically indicated, a new serum specimen should be submitted in 7-14 days. Test Performed by: [place] [id number] Desirable <150 Borderline high 150-199 High 200-499 Very High >500 56 Desirable <200 Borderline high 200-239 High >239 57 Low <40 Desirable: 40-60 High: >60 58 Desirable: <100 mg/dL Near Optimal: 100-129 mg/dL Borderline High: 130-159 mg/dL High: 160-189 mg/dL Very High: >189 mg/dL 59 Normal Range 180 to 914 Indeterminate Range 145 to 180 Deficient Range <145 60 RESULT: No apparent monoclonal protein on serum electrophoresis. Test Performed by: [place] [id number] [employer]: Ike Ibrahim II, M.D., Ph.D. 61 Normal Range 180 to 914 Indeterminate Range 145 to 180 Deficient Range <145 62 Because ethnic data is not always readily available, this report includes an eGFR for both -Americans and non- Americans. The National Kidney Disease Education Program (NKDEP) does not endorse the use of the MDRD equation for patients that are not between the ages of 18 and 70, are , have extremes of body size, muscle mass, or nutritional status, or are non- or non-. According to the National Kidney Foundation, irrespective of diagnosis, the stage of the disease is based on the level of kidney function: Stage Description GFR(mL/min/1.73 m(2)) 1 Kidney damage with normal or decreased GFR 90 2 Kidney damage with mild decrease in GFR 60-89 3 Moderate decrease in GFR 30-59 4 Severe decrease in GFR 15-29 5 Kidney failure <15 (or dialysis) 63 Serologic response to B. burgdorferi infection is not detected, but cannot rule out early infection during which low or undetectable antibody levels to B. burgdorferi may be present. If clinically indicated, a new serum specimen should be submitted in 7-14 days. Test Performed by: [place] [address] [employer]: Ike Ibrahim II, M.D., Ph.D. 64 Because ethnic data is not always readily available, this report includes an eGFR for both -Americans and non- Americans. The National Kidney Disease Education Program (NKDEP) does not endorse the use of the MDRD equation for patients that are not between the ages of 18 and 70, are , have extremes of body size, muscle mass, or nutritional status, or are non- or non-. According to the National Kidney Foundation, irrespective of diagnosis, the stage of the disease is based on the level of kidney function: Stage Description GFR(mL/min/1.73 m(2)) 1 Kidney damage with normal or decreased GFR 90 2 Kidney damage with mild decrease in GFR 60-89 3 Moderate decrease in GFR 30-59 4 Severe decrease in GFR 15-29 5 Kidney failure <15 (or dialysis) 65 Because ethnic data is not always readily available, this report includes an eGFR for both -Americans and non- Americans. The National Kidney Disease Education Program (NKDEP) does not endorse the use of the MDRD equation for patients that are not between the ages of 18 and 70, are , have extremes of body size, muscle mass, or nutritional status, or are non- or non-. According to the National Kidney Foundation, irrespective of diagnosis, the stage of the disease is based on the level of kidney function: Stage Description GFR(mL/min/1.73 m(2)) 1 Kidney damage with normal or decreased GFR 90 2 Kidney damage with mild decrease in GFR 60-89 3 Moderate decrease in GFR 30-59 4 Severe decrease in GFR 15-29 5 Kidney failure <15 (or dialysis) Procedures Date CPT Code Description Status Comment 03/07/2016 Colonoscopy Completed 02/12/2004 Colonoscopy Completed Normal Encounters Type Date Location Provider CPT E/M Dx Office Visit 04/25/2017 2:10p [facility] Kennedy Frey, [address] Z00.01 Medicine - [address] Kaila,FACP G89.29 F33.1 F51.04 M16.12 Z00.00 Z23 Office Visit 01/28/2017 3:40p [facility] Kennedy Frey, [address]486 M16.12 Medicine - [address] [address] Bright,FACP G89.29 Z23 Office Visit 11/06/2016 2:10p [facility] Kennedy Frey, [address] R30.0 - Viv Bright,FACP N40.1 Office Visit 06/01/2016 11:20a [facility] Kennedy Frey, [address] R63.4 - [place] Bright,FACP J20.9 Office Visit 05/28/2016 3:20p [facility] Sonny Cleaning, [address]38 J20.9 Medicine - [place] Mark Bright Office Visit 03/14/2016 10:06a [facility] Kennedy Frey, [address] S06.0x0D Medicine - [place] Mark Doty.Erma,FACP G43.009 S06.5x0A Office Visit 03/14/2016 9:10a [facility] Kennedy Frey, [address]181 S06.0x0D Medicine - [address] M.Erma,FACP G43.009 Z00.00 Z23 Office Visit 02/14/2016 10:20a [facility] Medicine Kennedy Frey, [address]97 M54.2 - Viv Bright,FACP M25.561 H53.8 Office Visit 01/09/2016 1:20p [facility] Kennedy Frey, [address]70 A69.20 Medicine - [place] Mark Bright,FACP F33.1 Office Visit 11/17/2015 4:40p [facility] Kennedy Frey, [address]64 R53.83 Medicine - [place] Mark Bright,FACP D53.9 Z12.11 Z23 Office Visit 06/27/2015 1:00p [facility] Myers M.D. 70513 M16.32 C.M.A. M91.12 M21.752 M54.5 Office Visit 06/15/2015 8:00a [facility] Cevallos M.D. 34331 M16.32 C.M.A. M91.12 M21.752 Office Visit 06/06/2015 3:20p [facility] Sonny Purdy M.D. 80343 J20.9 Medicine - [address] R53.83 Office Visit 04/13/2015 11:50a [facility] Kennedy Frey, [address]88 F32.9 Medicine - [place] Bright,FACP Office Visit 09/13/2014 1:00p [facility] Kennedy Frey, 95884 681.00 Medicine - [place] Bright,FACP Office Visit 08/10/2014 11:40a [facility] Sonny Purdy, 49590 372.72 Medicine - [place] Mark Bright Office Visit 06/30/2014 4:20p [facility] Kennedy Frey, 45936 719.45 Medicine - [place] Mark Bright,FACP 300.09 V76.51 Office Visit 05/07/2014 9:40a [facility] Medicine Kevin Richardson M.D. 85863 719.45 - [address] 307.49 724.5 300.09 724.2 Plan of Care 09/03/2017 - Sonny Purdy M.D.L98.9 Disorder of the skin and subcutaneous tissue, unspecifiedReferral:Deandre Mota MD, Dermatology
[2017-09-09 21:58] LABS: ABS Basophils 0 10^3/ul (0-0.2); ABS Eosinophils 0.2 10^3/ul (0-0.6); ABS Lymphocytes 1.8 10^3/ul (1.0-4.8); ABS Monocytes 0.3 10^3/ul (0-0.8); ABS Neutrophils 2.2 10^3/ul (1.5-7.7); ABS Nucleated RBC 0 10^3/ul; Eosinophil % 3.7 % (0-6); Hematocrit 37 % (42-52); Hemoglobin 12.4 g/dl (14.0-18.0); Lymphocyte % 39.8 % (25-47); Mean Corpuscular HGB Conc 34 g/dl (31-36); Mean Corpuscular Hemoglobin 31 pg (27-31); Mean Corpuscular Volume 92 fL (80-94); Mean Platelet Volume 6.6 um3 (7.4-10.4); Nucleated Red Blood Cells % 0.1; Platelet Count 212 10^3/ul (150-450); Red Blood Count 3.98 10^6/ul (4.00-5.40); Red Cell Distribution Width 13 % (10.5-15); White Blood Count 4.5 10^3/ul (3.5-10.8)
[2017-09-09] MEDS ORDERED: Aspirin 81 mg CHEW TAB* 81 MG TAB.CHEW ONE (22:07)
[2017-09-09 22:09] LABS: INR 0.94 (0.77-1.02)
[2017-09-09] MEDS ORDERED: Aspirin 81 mg CHEW TAB* 81 MG TAB.CHEW PO ONE (22:09)
[2017-09-09 23:35] VITALS: BP 122/79
--- NOTE | 2017-09-10 07:28 | RAD ---
Indication: Chest pain. Single frontal view of the chest performed at 2139 hours was reviewed. No prior study is available for comparison. No mediastinal shift is noted. Heart is of normal size and configuration. Lung maya appear clear. IMPRESSION: NO ACTIVE CARDIOPULMONARY DISEASE IS NOTED.
== END 2017-09-09 23:35 | disposition home or self-care (01) ==
LOC: ED 21:04
DX: R07.9 Chest pain, unspecified (principal); R06.02 Shortness of breath
CPT/HCPCS: 36415; 71045; 80053; 83880; 84484; 85025; 85379; 85610; 85730; 93005; 99283; A9270-GY

== ENCOUNTER 2018-02-04 17:58 | Emergency (ER) | payer BC, MEDICARE ==
[2018-02-04] MEDS ORDERED: Proparacaine 0.5% OPHTH.SOL* 15 ML BTL LEFT EYE ONE (18:19)
[2018-02-04] MEDS ORDERED: Fluorescein Sodium TOPICAL* 1 MG TEST STRIP OPHTHALMIC ONE (18:43)
--- NOTE | 2018-02-04 19:11 | ED ---
Throat Pain/Nasal Congestion - HPI Summary HPI Summary: Patient complains of right eye pain starting his afternoon after working in his wood shop. Denies known trauma or foreign body. No history of contact lens. Denies vision change, GUDINO. - History of Current Complaint Chief Complaint: EDEyeProblem Time Seen by Provider: 02/04/18 18:17 Hx Obtained From: Patient Onset/Duration: Sudden Onset Severity: Moderate Associated Signs And Symptoms: Positive: Negative Cough: None - Allergies/Home Medications Allergies/Adverse Reactions: Allergies Allergy/AdvReac Type Severity Reaction Status Date / Time cortisone Allergy Unknown Verified 02/04/18 18:28 Reaction Details duloxetine [From Cymbalta] Allergy See Comment Verified 02/04/18 18:28 PMH/Surg Hx/FS Hx/Imm Hx Endocrine/Hematology History: Denies: Hx Diabetes Cardiovascular History: Reports: Hx Angina Denies: Hx Coronary Artery Disease, Hx Hypertension, Hx Myocardial Infarction , Hx Valvular Heart Disease Respiratory History: Denies: Hx Asthma History: Denies: Hx Dialysis Musculoskeletal History: Reports: Hx Arthritis EENT History: Denies: Hx Deafness Psychiatric History: Denies: Hx Autism - Cancer History Cancer Type, Location and Year: skin CA - Surgical History Surgery Procedure, Year, and Place: hernia repair. finger surgery. skin CA removed from upper lip Infectious Disease History: No Infectious Disease History: Denies: Hx Clostridium Difficile, Hx Hepatitis, Hx of Known/Suspected MRSA, Hx Shingles, Hx Tuberculosis, Traveled Outside the [place] in Last 30 Days - Family History Known Family History: Positive: Unknown - Social History Lives: With Family Alcohol Use: Daily Substance Use Type: Reports: None Hx Tobacco Use: Yes Smoking Status (MU): Current Every Day Smoker Type: Cigarettes Amount Used/How Often: 1-4 per day Length of Time of Smoking/Using Tobacco: 50 years Review of Systems Constitutional: Negative Eyes: Other ENT: Negative Cardiovascular: Negative Respiratory: Negative Gastrointestinal: Negative Genitourinary: Negative Musculoskeletal: Negative Skin: Negative Neurological: Negative Psychological: Normal All Other Systems Reviewed And Are Negative: Yes Physical Exam Triage Information Reviewed: Yes Vital Signs On Initial Exam: Initial Vitals Temp Pulse Resp BP Pulse Ox 98.4 F 68 18 146/93 97 02/04/18 18:09 02/04/18 18:09 02/04/18 18:09 02/04/18 18:09 02/04/18 18:09 Vital Signs Reviewed: Yes Appearance: Positive: Well-Appearing Skin: Positive: Warm Head/Face: Positive: Normal Head/Face Inspection Eyes: Positive: EOMI, ROLAND, Other: - Conjunctival injection right eye. ENT: Positive: Normal ENT inspection Neck: Positive: Supple Respiratory/Lung Sounds: Positive: Clear to Auscultation Cardiovascular: Positive: Normal Abdomen Description: Positive: Nontender Musculoskeletal: Positive: Normal Neurological: Positive: Normal Psychiatric: Positive: Normal AVPU Assessment: Alert - Aydee Coma Scale Best Eye Response: 4 - Spontaneous Best Motor Response: 6 - Obeys Commands Best Verbal Response: 5 - Oriented Coma Scale Total: 15 Diagnostics - Vital Signs Vital Signs Temp Pulse Resp BP Pulse Ox 02/04/18 18:09 98.4 F 68 18 146/93 97 - Laboratory Lab Statement: Any lab studies that have been ordered have been reviewed, and results considered in the medical decision making process. EENT Course/Dx - Course Course Of Treatment: Patient complains of right eye pain starting his afternoon after working in his wood shop. Denies known trauma or foreign body. No history of contact lens. Denies vision change, GUDINO. Corneal abrasion and Conjunctival abrasion by UV lamp exam. Rx for gentamicin antibiotic drops. Follow-up with ophthalmology - Diagnoses Provider Diagnoses: Pain, eye, right, Corneal abrasion, Conjunctival abrasion Discharge - Sign-Out/Discharge Documenting (check all that apply): Patient Departure - Discharge Plan Condition: Stable Disposition: HOME Prescriptions: HYDROcodone/ACETAMIN 5-325 MG* [[place] 5-325 TAB*] 1 tab PO TID 2 Days #4 tab MDD 3 tabs Patient Education Materials: Corneal Abrasion (ED) Referrals: Kennedy Frey MD [Primary Care Provider] - Morales Nunez MD [Medical Doctor] - Additional Instructions: 2 drops of antibiotic solution every 4 hours in right eye. Follow-up with ophthalmology Dr Nunez. Alternate ibuprofen 600 mg with Tylenol 650 mg every 3 hours for control of pain if necessary. Return to the ED for any new or worsening symptoms. - Billing Disposition and Condition Condition: STABLE Disposition: Home
[2018-02-04 19:25] VITALS: BP 134/91
[2018-02-04] MEDS ORDERED: Gentamicin 0.3% OPHTH.SOLN* 5 ML BTL RIGHT EYE SCH (19:30)
== END 2018-02-04 19:25 | disposition home or self-care (01) ==
LOC: ED 17:58
DX: S05.01XA Injury of conjunctiva and corneal abrasion without foreign body, right eye, initial encounter (principal); S00.211A Abrasion of right eyelid and periocular area, initial encounter; X58.XXXA Exposure to other specified factors, initial encounter; Y92.9 Unspecified place or not applicable; F17.210 Nicotine dependence, cigarettes, uncomplicated; Z85.828 Personal history of other malignant neoplasm of skin
CPT/HCPCS: 99282; A9270-GY